=== PATIENT | female | born 1955 | race Caucasian/White ===

== ENCOUNTER 2017-08-21 21:44 | Emergency (ER) | payer OTHER ==
[~2017-08-21] VITALS: Ht 152.4 cm; Wt 81.6 kg
[~2017-08-21 21:44] MED LIST: LODINE XL400 MG; PNEU16DI2
[2017-08-23] MEDS ORDERED: OXYCONTIN40 M1 (18:55)
== END 2017-08-21 23:59 | disposition home or self-care (01) ==
LOC: ER 21:44
DX: M25.512 Pain in left shoulder (principal)

== ENCOUNTER → 2017-08-23 | Emergency (ER) | payer OTHER ==
[~2017-08-23] VITALS: Ht 152.4 cm; Wt 81.6 kg
[~2017-08-23] MED LIST changes: +OXYCONTIN40 M1
== END | disposition home or self-care (01) ==
LOC: ER 18:41
DX: M75.22 Bicipital tendinitis, left shoulder (principal); J40 Bronchitis, not specified as acute or chronic; M94.0 Chondrocostal junction syndrome [Tietze]

== ENCOUNTER 2018-04-13 11:16 | Emergency (ER) | payer OTHER ==
[~2018-04-13] VITALS: Ht 152.4 cm; Wt 84.4 kg
[2018-04-13] MEDS ORDERED: NABUMETONE500 MG (11:34)
== END 2018-04-13 15:17 | disposition home or self-care (01) ==
LOC: ER 11:16
DX: M25.512 Pain in left shoulder (principal); M54.2 Cervicalgia

== ENCOUNTER 2021-09-21 22:34 | Emergency (ER) | payer OTHER ==
[~2021-09-21] VITALS: Ht 152.4 cm; Wt 85.7 kg
[~2021-09-21 22:34] MED LIST changes: +NABUMETONE500 MG
[2021-09-21] MEDS ORDERED: OXYCONTIN10 M1 (22:43)
[2021-09-21] MEDS ORDERED: COZAAR25 MG PO (22:43)
[2021-09-22] MEDS ORDERED: CIPRO500 MG PO (02:54)
== END 2021-09-22 03:13 | disposition home or self-care (01) ==
LOC: ER 22:34
DX: R30.0 Dysuria (principal)

== ENCOUNTER 2022-02-25 06:38 | Day surgery (SDC) | payer OTHER ==
[~2022-02-25 06:38] MED LIST changes: +CIPRO500 MG PO; +COZAAR25 MG PO; +OXYCONTIN10 M1
== END 2022-02-25 10:20 | disposition home or self-care (01) ==
LOC: AMB-ENDOS 06:38
PROVIDERS: ATTEND Colon & Rectal Surgery
DX: D12.2 Benign neoplasm of ascending colon (principal); D12.4 Benign neoplasm of descending colon; K57.30 Diverticulosis of large intestine without perforation or abscess without bleeding; Z86.010 Personal history of colon polyps; I10 Essential (primary) hypertension

== ENCOUNTER 2022-02-27 10:15 | Inpatient (IN) | payer OTHER ==
[~2022-02-27] VITALS: Ht 160 cm; Wt 83.0 kg
[2022-02-27] MEDS ORDERED: OXICODONE (11:37)
== END 2022-03-07 11:29 | disposition home or self-care (01) | DRG 743 ==
LOC: OB/GYN 03-05 07:00 → O/R 03-05 07:00 → SURG 03-05 07:00 → OB/GYN 03-05 14:23
PROVIDERS: ADMIT Obstetrics & Gynecology Gynecologic Oncology; ATTEND Obstetrics & Gynecology Gynecologic Oncology
PROC: 0UT20ZZ Resection of Bilateral Ovaries, Open Approach (ICD-10-PCS; 2022-03-05)
PROC: 0UT70ZZ Resection of Bilateral Fallopian Tubes, Open Approach (ICD-10-PCS; 2022-03-05)
PROC: 07BC0ZZ Excision of Pelvis Lymphatic, Open Approach (ICD-10-PCS; 2022-03-05)
PROC: 0DBU0ZZ Excision of Omentum, Open Approach (ICD-10-PCS; 2022-03-05)
PROC: 0UB40ZZ Excision of Uterine Supporting Structure, Open Approach (ICD-10-PCS; 2022-03-05)
PROC: 0UT90ZZ Resection of Uterus, Open Approach (ICD-10-PCS; principal; 2022-03-05 07:00)
DX: D27.0 Benign neoplasm of right ovary (principal); N80.03 Adenomyosis of the uterus; D25.9 Leiomyoma of uterus, unspecified

== ENCOUNTER 2023-01-18 14:09 | Emergency (ER) | payer OTHER ==
[~2023-01-18] VITALS: Ht 152.4 cm; Wt 85.7 kg
[~2023-01-18 14:09] MED LIST changes: +OXICODONE
[2023-01-18] MEDS ORDERED: PEPCID AC20 MG PO (20:59)
[2023-01-18] MEDS ORDERED: ZOFRAN8 MG PO (20:59)
[2023-01-18] MEDS ORDERED: LEVSIN/SL0.125 MG SL (20:59)
== END 2023-01-18 21:13 | disposition home or self-care (01) ==
LOC: ER 14:09
PROVIDERS: General Practice
DX: K80.50 Calculus of bile duct without cholangitis or cholecystitis without obstruction (principal); R11.10 Vomiting, unspecified; R10.9 Unspecified abdominal pain; I10 Essential (primary) hypertension
CPT/HCPCS: 36415; 76700; 96365; 96366; 96372; 99284; J1885; J2175; J2405; J2930; J3490; J7030

== ENCOUNTER 2023-01-28 20:05 | Inpatient (IN) | payer OTHER ==
[~2023-01-28] VITALS: Ht 152.4 cm; Wt 85.7 kg
[~2023-01-28 20:05] MED LIST changes: +LEVSIN/SL0.125 MG SL; +PEPCID AC20 MG PO; +ZOFRAN8 MG PO
[2023-01-28] MEDS ORDERED: OXYCONTIN10 M1 (21:01)
== END 2023-01-31 13:32 | disposition home or self-care (01) | DRG 419 ==
LOC: ER 20:05 → MEDI 01-29 10:17
PROVIDERS: General Practice; Surgery; ADMIT Internal Medicine; ATTEND Internal Medicine
PROC: BW40ZZZ Ultrasonography of Abdomen (ICD-10-PCS; 2023-01-28)
PROC: 0WQF4ZZ Repair Abdominal Wall, Percutaneous Endoscopic Approach (ICD-10-PCS; 2023-01-29)
PROC: BW21ZZZ Computerized Tomography (CT Scan) of Abdomen and Pelvis (ICD-10-PCS; 2023-01-29)
PROC: 0FT44ZZ Resection of Gallbladder, Percutaneous Endoscopic Approach (ICD-10-PCS; principal; 2023-01-29 14:30)
DX: K80.50 Calculus of bile duct without cholangitis or cholecystitis without obstruction (principal)

== ENCOUNTER 2023-09-02 14:44 | Emergency (ER) | payer OTHER ==
[~2023-09-02] VITALS: Ht 152.4 cm; Wt 72.6 kg
== END 2023-09-02 17:47 | disposition home or self-care (01) ==
LOC: ER 14:45
DX: M79.606 Pain in leg, unspecified (principal); Z98.890 Other specified postprocedural states; Z88.6 Allergy status to analgesic agent

== ENCOUNTER 2025-02-12 11:23 | Emergency (ER) | payer OTHER ==
[~2025-02-12] VITALS: Ht 152.4 cm; Wt 82.6 kg
[2025-02-12] MEDS ORDERED: PANTOPRAZOLE SODIUM 40 MG in 0.9 % SODIUM CHLORIDE 8 ML IV PUSH STA (12:04)
[2025-02-12] MEDS ORDERED: KETOROLAC TROMETHAMINE 30 MG VIAL IV ONE (12:15)
[2025-02-12] MEDS ORDERED: 0.9 % SODIUM CHLORIDE 1,000 ML IV SCH (12:15)
[2025-02-12] MEDS ORDERED: ONDANSETRON HCL 2 MG/ML VIAL IV ONE (12:15)
[2025-02-12] MEDS ORDERED: PIPERACILLIN/TAZOBACTAM SODIUM 3.375 GM VIAL IV ONE (12:15)
[2025-02-12 12:36] LABS: BASO % 0.2 % (0.1-1.2); EOS # 0.10 (0.04-0.54); EOS % 0.8 % (0.7-7.0); LYMPH # 2.57 (1.18-3.74); LYMPH % 20.8 % (19.3-53.1); MEAN PLATELET VOLUME 9.70 fl (9.4-12.4); MONO # 0.67 (0.24-0.82); MONO % 5.4 % (4.7-12.5); NEUT # 8.92 (1.56-6.13); NEUT % 72.4 % (34.0-71.1); RED CELL DISTRIBUTION WIDTH 13.6 % (11.6-14.4)
[2025-02-12 13:04] LABS: ALT/SGPT 20.0 U/L (12-78); AST/SGOT 20.0 U/L (15-37); BILIRUBIN TOTAL 0.92 mg/dL (0.3-1.2); BUN CREA RATIO 14.0 (7.0-25.0); CREATININE SERUM 0.66 mg/dL (0.55-1.02); GFR 89.33; GLOBULINA 3.8 G/DL (2.4-3.5); GLUCOSE FASTING 92.0 mg/dL (65-100); OSMOLALITY SERUM 283.0 MOSM/KG (275-295)
[2025-02-12 13:47] LABS: URINE APPEARANCE Turbid; URINE BILIRRUBIN Small (NEGATIVE); URINE BLOOD Negative; URINE COLOR Dark Yellow; URINE GLUCOSE Negative (NEGATIVE); URINE KETONE Trace (NEGATIVE); URINE LEUKOCYTE Trace; URINE NITRATE Positive; URINE PROTEIN 30 (NEGATIVE); URINE UROBILINOGEN 1.0 E.U./dl
[2025-02-12 13:48] LABS: URINE BACTERIA 773.9 uL (0.0-1933); URINE CAST 14.81 uL (0.0-1.40); URINE EPITHELIAL CELLS 197.9 uL (0.0-38.8); URINE RBC 30.5 uL (0.0-20.8); URINE WBC 40.3 uL (0.0-23.2)
[2025-02-12 14:13] LABS: URINE CRYSTALS MANY /HPF
[2025-02-12] MEDS ORDERED: INTESTINEX680 M1 PO (15:12)
[2025-02-12] MEDS ORDERED: METRONIDAZOLE500 MG PO (15:12)
[2025-02-12] MEDS ORDERED: PROTONIX40 MG PO (15:12)
== END 2025-02-12 15:28 | disposition home or self-care (01) ==
LOC: ER 11:23
PROVIDERS: General Practice
DX: K52.9 Noninfective gastroenteritis and colitis, unspecified (principal); N39.0 Urinary tract infection, site not specified; Z88.8 Allergy status to other drugs, medicaments and biological substances; I10 Essential (primary) hypertension
CPT/HCPCS: 36415; 74177; 96365; 96366; 99284; J2405; J2543; J3490; Q9965

== ENCOUNTER 2025-05-21 18:50 | Emergency (ER) | payer OTHER ==
[~2025-05-21] VITALS: Ht 152.4 cm; Wt 82.6 kg
[~2025-05-21 18:50] MED LIST changes: +INTESTINEX680 M1 PO; +METRONIDAZOLE500 MG PO; +PROTONIX40 MG PO
[2025-05-21 19:37] VITALS: BP 122/82; O2SAT 96
[2025-05-21] MEDS ORDERED: METHYLPREDNISOLONE SOD SUCC 125 MG VIAL IV ONE (20:00)
[2025-05-21] MEDS ORDERED: LEVALBUTEROL HCL 1.25 MG/3 ML SOLUTION IH SCH (20:00)
[2025-05-21] MEDS ORDERED: ACETAMINOPHEN 500 MG GEL..CAP PO ONE ×2 (20:00→20:30)
[2025-05-21] MEDS ORDERED: IPRATROPIUM BROMIDE 0.5 MG/2.5 ML AMPUL.NEB IH SCH (20:00)
[2025-05-21] MEDS ORDERED: GUAIFEN/DEXTROMETHORPHAN/PE 10 ML BLIST.PACK PO ONE ×2 (20:00→20:31)
[2025-05-21] MEDS ORDERED: METHYLPREDNISOLONE SOD SUCC 125 MG VIAL ONE (20:31)
[2025-05-21 22:30] LABS: BASO % 0.5 % (0.1-1.2); EOS # 0.40 (0.04-0.54); EOS % 5.5 % (0.7-7.0); LYMPH # 4.25 (1.18-3.74); LYMPH % 58.4 % (19.3-53.1); MEAN PLATELET VOLUME 9.60 fl (9.4-12.4); MONO # 0.50 (0.24-0.82); MONO % 6.9 % (4.7-12.5); NEUT # 2.08 (1.56-6.13); NEUT % 28.6 % (34.0-71.1); RED CELL DISTRIBUTION WIDTH 14.6 % (11.6-14.4)
[2025-05-21 22:58] LABS: ALT/SGPT 34.0 U/L (12-78); AST/SGOT 21.0 U/L (15-37); BILIRUBIN TOTAL 0.54 mg/dL (0.3-1.2); BUN CREA RATIO 13.0 (7.0-25.0); CREATININE SERUM 0.67 mg/dL (0.55-1.02); GFR 87.79; GLOBULINA 3.6 G/DL (2.4-3.5); GLUCOSE FASTING 123.0 mg/dL (65-100); OSMOLALITY SERUM 287.0 MOSM/KG (275-295)
[2025-05-21 23:00] LABS: BASOPHIL MAN 1.0 %; EOSINOPHIL MAN 7.0 %; LYMPHOCYTE MAN 49.0 %; MONOCYTE MAN 3.0 %; NEUTROPHILS MAN 28.0 %
[2025-05-22 00:56] LABS: COVID-19 AG NEGATIVE (NEGATIVE)
[2025-05-22] MEDS ORDERED: IPRAT-ALBUT 0.5-3 ML IH (01:24)
[2025-05-22] MEDS ORDERED: PEPCID AC20 MG PO (01:24)
[2025-05-22] MEDS ORDERED: MUCINEX DM ER1 EAC1 PO (01:24)
[2025-05-22] MEDS ORDERED: SINGULAIR10 MG PO (01:24)
[2025-05-22] MEDS ORDERED: LEVOFLOXACIN500 MG PO (01:24)
== END 2025-05-22 01:34 | disposition home or self-care (01) ==
LOC: ER 18:51
PROVIDERS: General Practice
DX: B34.9 Viral infection, unspecified (principal); J06.9 Acute upper respiratory infection, unspecified; Z88.8 Allergy status to other drugs, medicaments and biological substances; M19.90 Unspecified osteoarthritis, unspecified site; Z20.822 Contact with and (suspected) exposure to COVID-19
CPT/HCPCS: 36415; 71046; 82803; 94640; 96365; 99284; J3490